=== PATIENT | female | born 1980 | race Caucasian/White ===

== ENCOUNTER 2018-05-27 13:32 | Inpatient (IN) ==
[2018-05-27] MEDS ORDERED: PANTOPRAZOLE 40 MG INJECTION IVP ONE (14:03)
[2018-05-27] MEDS ORDERED: ONDANSETRON 4 MG/2 ML INJECTION IVP ONE (14:03)
--- NOTE | 2018-05-27 14:06 | Emergency Department Report ---
Nausea/Vomiting/Diarrhea HPI - General Chief complaint: Abdominal Pain Stated complaint: Poss seizure Time Seen by Provider: 05/27/18 13:48 Source: patient Mode of arrival: ambulatory Limitations: no limitations - History of Present Illness HPI Narrative: Patient is a 37-year-old female brought to the emergency room by a friend today for evaluation of lower abdominal pain, nausea and diarrhea. Patient reports she has had symptoms for one week. She saw Paty MALONEY on Friday and again today. She reports having a pelvic exam that was normal. She is scheduled for an outpatient uterine sonogram on Friday. She reports that her pain continues to worsen, accompanied with vomiting, thus encouraging her to present to the ER today. Patient reports abdominal pain is suprapubic and low in nature. She started having diarrhea episodes today. She has had decreased oral intake. Reports last menstrual period was Friday 05/25. She does have a history of seizures and currently takes Keppra and Trileptal. She reports missing no doses of this. MD complaint: nausea, vomiting, diarrhea, abdominal pain Onset (ago): week(s) (1) Associated Abdominal Pain: Yes Location of pain: LLQ, RLQ, other (suprapubic) Severity scale (1-10): 5 Quality: cramping Consistency: intermittent Relieving factors: none Exacerbating factors: none Associated symptoms: loss of appetite - Related Data Home Medications Medication Instructions Recorded Confirmed Dicyclomine [Bentyl] 20 mg PO DAILY 05/27/18 05/27/18 Escitalopram [Lexapro] 20 mg PO DAILY 05/27/18 05/27/18 Ibuprofen 800 mg PO Q8H PRN 05/27/18 05/27/18 Levocetirizine [Xyzal] 5 mg PO HS 05/27/18 05/27/18 Levothyroxine Sodium 75 mcg PO DAILY 05/27/18 05/27/18 OXcarbazepine [Trileptal] 600 mg PO BID 05/27/18 05/27/18 Ranitidine [Zantac] 300 mg PO BID 05/27/18 05/27/18 Solifenacin Succinate [Vesicare] 5 mg PO DAILY 05/27/18 05/27/18 levETIRAcetam [Keppra] 1,000 mg PO BID 05/27/18 05/27/18 Allergies Allergy/AdvReac Type Severity Reaction Status Date / Time cefaclor Allergy Unknown Verified 05/27/18 13:54 pseudoephedrine Allergy Unknown Verified 05/27/18 13:54 sulfamethoxazole Allergy Verified 05/27/18 13:54 [From Bactrim] trimethoprim [From Bactrim] Allergy Verified 05/27/18 13:54 Review of Systems All systems: reviewed and negative except as stated Gastrointestinal: Reports: abdominal pain, nausea, vomiting, diarrhea [facility] Medical History (Last Updated 09/18/17 @ 10:26 by Ivett Landry, [facility]) Acid reflux (Chronic Medical) Anxiety (Chronic Medical) Hypothyroid (Chronic Medical) Seizures (Chronic Medical) Surgical History: Tonsillectomy. Cholecystectomy. Cyst on Ovary removed x2. [place] Teeth removed Family History: Family History (Last Reviewed 02/24/18 @ 13:32 by Marly Beckwith, [facility]) Mother Thyroid disease Father High blood pressure Hyperlipidemia Heart disease Diabetes Alcohol abuse Maternal Grandmother Stroke Cancer of breast Paternal Grandmother COPD (chronic obstructive pulmonary disease) - Social History Smoking status: Never smoker Substance use type: does not use Alcohol intake frequency: does not drink Current occupational status: employed Social history: PCP- Paty Erwin Neurologist- Dr Blackwood Physical Exam - General General appearance: alert, in no apparent distress - Normal Exams: Head:: Normocephalic without trauma Eyes:: Pupils are PERRLA w/ EOMI Neck:: Full range of motion, without adenopathy Chest/Respirations:: Clear all andrews, with good airflow Cardiovascular:: Regular rate and rhythm, without murmur or gallop, Pulses 2+ all extremities Integumentary:: No rashes Neurological:: Patient is alert, and oriented, cranial nerves, motor/sensory/ cerebellar Psychiatric:: Patient exhibits, appropriate attention, emotion and affect - Abdominal Exam Abdominal exam: Present: soft, diminished bowel sounds Abdominal tenderness: Present: suprapubic, mild Course Vital Signs Temperature 98.9 F 05/27/18 13:35 Pulse Rate 80 05/27/18 13:35 Respiratory Rate 24 05/27/18 13:35 Blood Pressure 144/76 H 05/27/18 13:35 Pulse Oximetry 98 05/27/18 13:35 Temperature 98.9 F 05/27/18 13:35 Pulse Rate 80 05/27/18 13:35 Respiratory Rate 24 05/27/18 13:35 Blood Pressure 144/76 H 05/27/18 13:35 Pulse Oximetry 98 05/27/18 13:35 Nausea/Vomiting/Diarrhea - [facility] Narrative Medical decision making narrative: 1550- Lab results completed. Noted hyponatremia- NA 121. Nausea and abdominal pain improved following IV zofran, reglan and MS. Spoke with oncall hospitalist- Dr Kay. Discussed pt history, HPI and findings. He accepts patient for inpatient admission. At this time will forego abdominal imaging as abdomen is soft with mild lower cramping. WBC count remains normal. No evidence of sepsis process. Reviewed all labs and plan of care with patient. - Differential Diagnosis Likely: traveler's diarrhea, food poisoning, gastroenteritis, drug-induced nausea and vomiting, dehydration - Medical Records Attestation: I reviewed the patient's medical records. - Lab Data Attestation: I reviewed the patient's lab results. Result diagrams: 05/27/18 14:31 05/27/18 14:31 Lab Results 05/27/18 05/27/18 05/27/18 Range/Units 14:31 14:31 14:52 WBC 7.1 (4.5-11.0) T/MM3 RBC 4.31 (4.00-5.20) M/MM3 Hgb 13.3 (12-16) GM/DL Hct 35.3 L (36-46) % MCV 81.9 (80-100) UM3 MCH 30.9 (26-34) UUG MCHC 37.7 H (31-37) GM/DL RDW Std Deviation 32.8 L (36.9-50.2) FL Plt Count 335 (130-400) T/MM3 MPV 9.0 L (9.4-12.4) UM3 Immature Gran % (Auto) Not performed Neut % (Auto) Not performed Lymph % (Auto) Not performed [place] % (Auto) Not performed Eos % (Auto) Not performed Baso % (Auto) Not performed Neut # (Auto) Not performed Lymph # (Auto) Not performed [place] # (Auto) Not performed Eos # (Auto) Not performed Baso # (Auto) Not performed Abs Immat Gran (auto) Not performed Neutrophils % (Manual) 73.0 H (33-66) % Lymphocytes % (Manual) 21.0 L (23-45) % Monocytes % (Manual) 6.0 (0-9.0) % Neutrophils # (Manual) 5.2 (1.8-7.7) T/MM3 Lymphocytes # (Manual) 1.5 (1-4.8) T/MM3 Monocytes # (Manual) 0.4 (0-0.8) T/MM3 RBC Morph Comment Normal Turbidity < 20 (0-20) Sodium 121 L* (136-146) MEQ/L Potassium 3.8 (3.6-5) MEQ/L Chloride 88 L (98-107) MEQ/L Carbon Dioxide 19 L (22-30) MEQ/L Anion Gap 14 (5-15) meq/L BUN 5.0 L (7-17) MG/DL Creatinine 0.6 L (0.7-1.2) mg/dL Estimated Creat Clear Not performed GFR Calculation 112 (>60) mL/min BUN/Creatinine Ratio 8 (6-26) RATIO Glucose 102 (65-110) MG/DL Calculated Osmolality 231 L (261-280) MOSM/KG Calcium 9.0 (8.4-10.2) MG/DL Total Bilirubin 0.60 (0.20-1.30) MG/DL Icterus Index < 2 (0-7) AST 63 H (14-36) U/L ALT 54 H (1-35) U/L Alkaline Phosphatase 298 H (38-126) U/L Total Protein 8.0 (6.3-8.2) g/dL Albumin 5.0 (3.5-5.0) g/dL Globulin 3.0 (2.4-3.6) G/DL Albumin/Globulin Ratio 1.7 (1.1-2.2) RATIO Specimen Hemolysis < 15 (0-25) Ur Collection Type Urine, void-cc/notcc Urine Color Yellow (YELLOW) Urine Clarity Sl cloudy Urine pH 7.0 (5.0-8.0) Ur Specific [place] 1.015 (1.015-1.025) Urine Protein Trace A (NEGATIVE) Urine Glucose (UA) Negative (NEGATIVE) Urine Ketones 3+ A (NEGATIVE) Urine Occult Blood Negative (NEGATIVE) Urine Nitrate Negative (NEGATIVE) Urine Bilirubin Negative (NEGATIVE) Urine Urobilinogen 2.0 (NORMAL) EU/DL Ur Leukocyte Esterase Negative (NEGATIVE) Urinalysis Comment Microscopic not ind. Urine Test (Negative) 05/27/18 Range/Units 14:52 WBC (4.5-11.0) T/MM3 RBC (4.00-5.20) M/MM3 Hgb (12-16) GM/DL Hct (36-46) % MCV (80-100) UM3 MCH (26-34) UUG MCHC (31-37) GM/DL RDW Std Deviation (36.9-50.2) FL Plt Count (130-400) T/MM3 MPV (9.4-12.4) UM3 Immature Gran % (Auto) Neut % (Auto) Lymph % (Auto) [place] % (Auto) Eos % (Auto) Baso % (Auto) Neut # (Auto) Lymph # (Auto) [place] # (Auto) Eos # (Auto) Baso # (Auto) Abs Immat Gran (auto) Neutrophils % (Manual) (33-66) % Lymphocytes % (Manual) (23-45) % Monocytes % (Manual) (0-9.0) % Neutrophils # (Manual) (1.8-7.7) T/MM3 Lymphocytes # (Manual) (1-4.8) T/MM3 Monocytes # (Manual) (0-0.8) T/MM3 RBC Morph Comment Turbidity (0-20) Sodium (136-146) MEQ/L Potassium (3.6-5) MEQ/L Chloride (98-107) MEQ/L Carbon Dioxide (22-30) MEQ/L Anion Gap (5-15) meq/L BUN (7-17) MG/DL Creatinine (0.7-1.2) mg/dL Estimated Creat Clear GFR Calculation (>60) mL/min BUN/Creatinine Ratio (6-26) RATIO Glucose (65-110) MG/DL Calculated Osmolality (261-280) MOSM/KG Calcium (8.4-10.2) MG/DL Total Bilirubin (0.20-1.30) MG/DL Icterus Index (0-7) AST (14-36) U/L ALT (1-35) U/L Alkaline Phosphatase (38-126) U/L Total Protein (6.3-8.2) g/dL Albumin (3.5-5.0) g/dL Globulin (2.4-3.6) G/DL Albumin/Globulin Ratio (1.1-2.2) RATIO Specimen Hemolysis (0-25) Ur Collection Type Urine Color (YELLOW) Urine Clarity Urine pH (5.0-8.0) Ur Specific [place] (1.015-1.025) Urine Protein (NEGATIVE) Urine Glucose (UA) (NEGATIVE) Urine Ketones (NEGATIVE) Urine Occult Blood (NEGATIVE) Urine Nitrate (NEGATIVE) Urine Bilirubin (NEGATIVE) Urine Urobilinogen (NORMAL) EU/DL Ur Leukocyte Esterase (NEGATIVE) Urinalysis Comment Urine Test Negative (Negative) Disposition Clinical Impression: Hyponatremia Vomiting Qualifiers: Vomiting type: unspecified Vomiting Intractability: unspecified Nausea presence : with nausea Qualified Code(s): R11.2 - Nausea with vomiting, unspecified Disposition: 02 To [facility] Acute Care Condition: Stable Prescriptions: No Action levETIRAcetam [Keppra] 1,000 mg PO BID Dicyclomine [Bentyl] 20 mg PO DAILY OXcarbazepine [Trileptal] 600 mg PO BID Escitalopram [Lexapro] 20 mg PO DAILY Solifenacin Succinate [Vesicare] 5 mg PO DAILY Ranitidine [Zantac] 300 mg PO BID Levothyroxine Sodium 75 mcg PO DAILY Levocetirizine [Xyzal] 5 mg PO HS Ibuprofen 800 mg PO Q8H PRN PRN Reason: Pain Referrals: Davey Pineda MD [Physician] - Paty Erwin APRN, PHD [Primary Care Provider] - Time of Disposition: 15:51 - Seen By: midlevel
[2018-05-27] MEDS ORDERED: SALINE FLUSH 10ml SYRINGE IV ONE (14:07)
[2018-05-27] MEDS: NS 1,000 ML IV SCH ×3 (14:40→19:30)
[2018-05-27] MEDS ORDERED: MORPHINE SULFATE 2mg INJECTION IVP ONE (14:51)
[2018-05-27] MEDS ORDERED: METOCLOPRAMIDE 10mg/2ml INJECTION IVP ONE (15:21)
[2018-05-27] MEDS ORDERED: NS 1,000 ML IV SCH (15:49)
[2018-05-27] MEDS ORDERED: PROCHLORPERAZINE 10 MG/2 ML INJECTION IVP PRN (16:18)
[2018-05-27] MEDS ORDERED: ONDANSETRON 4 MG/2 ML INJECTION IVP PRN (16:18)
[2018-05-27 16:24] VITALS: BMI 26.1
--- NOTE | 2018-05-27 16:32 | History & Physical Report ---
History of Present Illness Date: 05/27/18 Chief complaint: abd pain HPI: Patient is a 37 year old female who usually follows with Paty Erwin APRN for her healthcare. She presented to the emergency room today with complaints of lower abdominal pain, nausea, vomiting, and diarrhea. She reports that her period started on 05/20 and that was about the time she noted the cramping pain in the lower abdomen. The pain has progressively worsened, and is mostly constant. At its worse it has been 10/10, right now it is 2/10,but she received morphine in the emergency room a couple hours ago and this is wearing off. She states that she has had nausea and vomiting often on since around May 20, she started having diarrhea several days ago, averaging 3 stools per day which she describes as loose and not formed and without blood. Her abdominal pain is not worse prior to bowel movements or in regard to eating. He states her periods are typically regular every month. Her current method of contraception is abstinence. She finished spotting with her period yesterday. She states the last 3 months her periods have been more painful and heavier lasting 6-7 days versus previously lasting approximate 4 days. She has not had any abnormal vaginal discharge. She had a pelvic exam this morning by Paty Erwin APRN, which pt relays was nl. She states her cramping was worse after the exam and she 's had pain that radiates through to the lower back. Her pain is mostly in the pelvis. She states she takes Vesicare as needed for overactive bladder symptoms. She states that she usually takes it daily during the week of her period, thus, she has been taking it routinely. She's not had any feeling that she has had urinary retention. No dysuria, hematuria or urinary frequency. She recently traveled home from [place]. She states she lives in [place] during the summer. She's not eaten foods that have seemed undercooked or rotten. She's had no changes to her diet. She does report a history of IBS in the past consisting of both diarrhea and constipation but states that when she changed her diet though symptoms have improved. She has no history of Crohn's or ulcerative colitis, etc. She hasn't registered a fever that she has felt hot and cold off and on. She does have hypothyroidism and thinks her last TSH was probably approximately a year ago. She was on a Z-Mendoza at the beginning of April for strep. She reports following that she had a sinus infection and cough and was given at 10 day course of Augmentin. She also has a history of an exploratory laparoscopy many years ago for what she thinks is a possible ovarian cyst, but she reports there were no abnormal findings. She denies a history of endometriosis. She's never been . Patient also mentions that she is seeing Dr. Perera this coming Friday to follow-up on her seizure disorder as she feels like she's having more "auras." She reports that Friday when she was driving home, she didn't know where she was. She reports this does not usually happen to her. She also complains of a headache that she's had for the past few months and this is not normal for her. She reports she had an EEG yesterday. Review of Systems All systems PM: 10-point ROS was reviewed, no additional remarkable complaints except (headache, abd pain, diarrhea, n/v) Past Medical History Medical History: Medical History (Last Updated 09/18/17 @ 10:26 by Ivett Landry [facility]) Acid reflux Anxiety Hypothyroid Seizures Surgical History: Tonsillectomy. Cholecystectomy. Cyst on Ovary removed. [place] Teeth removed Family History: Family History Mother Thyroid disease Father High blood pressure Hyperlipidemia Heart disease Diabetes Alcohol abuse Maternal Grandmother Stroke Cancer of breast Paternal Grandmother COPD (chronic obstructive pulmonary disease) Family History: As Above - Social History Smoking status: Never smoker Substance use type: does not use Alcohol intake frequency: does not drink Household members: none Current occupational status: employed ([employer] Current residence: Apartment/Private Home Social history: PCP- Paty Erwin Neurologist- Dr Perera Medications Home Medications Medication Instructions Recorded Confirmed Type Dicyclomine [Bentyl] 20 mg PO DAILY 05/27/18 05/27/18 History Escitalopram [Lexapro] 20 mg PO DAILY 05/27/18 05/27/18 History Ibuprofen 800 mg PO Q8H PRN 05/27/18 05/27/18 History Levocetirizine [Xyzal] 5 mg PO HS 05/27/18 05/27/18 History Levothyroxine Sodium 75 mcg PO DAILY 05/27/18 05/27/18 History OXcarbazepine [Trileptal] 600 mg PO BID 05/27/18 05/27/18 History Ranitidine [Zantac] 300 mg PO BID 05/27/18 05/27/18 History Solifenacin Succinate [Vesicare] 5 mg PO DAILY 05/27/18 05/27/18 History levETIRAcetam [Keppra] 1,000 mg PO BID 05/27/18 05/27/18 History Allergies Allergy/AdvReac Type Severity Reaction Status Date / Time cefaclor Allergy Unknown Verified 05/27/18 13:54 pseudoephedrine Allergy Unknown Verified 05/27/18 13:54 sulfamethoxazole Allergy Verified 05/27/18 13:54 [From Bactrim] trimethoprim [From Bactrim] Allergy Verified 05/27/18 13:54 Exam Vital Signs: Temperature 97.4 F 05/27/18 16:17 Pulse Rate 78 05/27/18 16:17 Respiratory Rate 16 05/27/18 16:17 Blood Pressure 121/79 05/27/18 16:17 Pulse Oximetry 96 05/27/18 16:17 Height/Weight/BMI: Height 1.68 m Weight 73.5 kg Body Mass Index 26.1 - Constitutional Present: no acute distress, well nourished, well developed - Routine HEENT Exam Head: Present: normocephalic, atraumatic Eye: Present: EOMI, PERRL ENT: Present: mucous membranes moist, oropharynx clear - Routine Neck Exam Present: supple. Absent: lymphadenopathy, thyromegaly - Routine Respiratory Exam Present: CTA bilaterally. Absent: wheezes - Routine Cardiovascular Exam Present: RRR, no murmur - Routine Abdominal Exam Present: soft, tenderness (lower abdomen). Absent: normoactive bowel sounds ( hypoactive BS's), distended, rebound, guarding, firm, rigid, organomegaly, mass - Routine Extremities Exam Present: no edema, normal capillary refill - Routine Skin Exam Present: dry, warm - Routine Neurological Exam Present: alert, oriented X3, CN II-XII intact - Routine Psychiatric Exam Present: normal affect, cooperative Results - Labs CBC & Chem 7: 05/27/18 14:31 05/27/18 18:49 Labs: Laboratory Tests 05/27/18 14:31 AST 63 H ALT 54 H Alkaline Phosphatase 298 H Laboratory Tests 05/27/18 05/27/18 14:52 14:52 Ur Collection Type Urine, void-cc/notcc Urine Color Yellow Urine Clarity Sl cloudy Urine pH 7.0 Ur Specific [place] 1.015 Urine Protein Trace A Urine Glucose (UA) Negative Urine Ketones 3+ A Urine Occult Blood Negative Urine Nitrate Negative Urine Bilirubin Negative Urine Urobilinogen 2.0 Ur Leukocyte Esterase Negative Urine Test Negative Assessment and Plan Assessment and Plan: Assessment Hyponatremia - 121 on admission Acute pelvic pain assoc with diarrhea, n/v Transaminitis - POA GERD Hypothyroidism Complex partial seizure d/o Depression/anxiety Allergies Overactive bladder/bladder spasms - uses PRN Vesicare Plan Admit, observation, for tx of hyponatremia and abd pain, n/v/d. Patient was given 1 L normal saline in the emergency room. Continue IVF's for hydration and hyponatremia. Repeat sodium level at 1800. Reglan 10 IV, morphine 2 mg IV, pantoprazole 40 mg IV and Zofran 4 mg IV given in ER with improvement of symptoms. Will continue these meds as needed for pain and nausea. Repeat labs in a.m. to follow electrolytes and liver function. Check TSH and Mg. Clear liquid diet for now given her pain and diarrhea. Telemetry to monitor for arrhythmias. Consider GI panel (including c diff) if pt develops fever or leukocytosis or if diarrhea persists. Keep OP appt with Dr. Perera to f-u on EEG and headaches. Pantoprazole IV for GERD and GI prophylaxis SCD' for DVT ppx Code status - full code. Care to return to [facility] on dismissal. DVT Prophylaxis: SCD's GI Prophylaxis: Protonix Resuscitation Status: Full Code - Physician Narrative Physician: Sudhir Kay MD Narrative: Date: 05/27/18 Time: 1923 Have independently interviewed and examined pt. Chart reviewed. Case discussed with ED provider and my RELIABILITY MANAGER. Care plan developed with my supervision; agree with above. Presents to ED secondary to low ab pain increasing for the past 8 days. Full and spatic pain. Notes increased difficulty getting urine to flow. Appetite decreased-not hungry and nothing tasting well. Nausea. Reports bronchitis in April-slowly improving, but felt more winded with activities the last week. Cough and congestion decreased. In ED, found to have low sodium at 121. Place in admission status for further evaluation and treatment. Lungs: clear bilaterally CV: regular AB: soft BS decreased EXT: trace edema MSE: awake alert Plan: Inpatient admission. IVF of NS to help sodium-monitor closely. Clear liquids. Control nausea. Suspect ab symptoms to improve with normalization of sodium; if pain persists will initiate further imaging. Hospital Course Summary Disclaimer: The visit summary below is not to be considered part of the above Progress Note. Hospital Course: 05/27/18 Admit, observation, for tx of hyponatremia and abd pain, n/v/d. Patient was given 1 L normal saline in the emergency room. Continue IVF's for hydration and hyponatremia. Repeat sodium level at 1800. Reglan 10 IV, MS 2 mg IV, pantoprazole 40 mg IV and Zofran 4 mg IV given in ER with improvement of symptoms. Will continue these meds as needed for pain and nausea. Repeat labs in a.m. to follow electrolytes and liver function. Check TSH and Mg. Clear liquid diet for now given her pain and diarrhea. Telemetry to monitor for arrhythmias. Keep OP appt with Dr. Perera to f-u on EEG and headaches. Pantoprazole IV for GERD and GI prophylaxis SCD' for DVT ppx Code status - full code. Care to return to [facility] on dismissal.
[2018-05-27] MEDS ORDERED: ACETAMINOPHEN 325 MG TABLET PO PRN (16:45)
[2018-05-27] MEDS ORDERED: BISACODYL 10 MG SUPPOSITORY RECTALLY PRN (16:45)
[2018-05-27] MEDS: MORPHINE SULFATE 2mg INJECTION IVP PRN ×2 (17:57→22:20)
[2018-05-27] MEDS: LEVETIRACETAM INJ 1,000 MG in NS 100 ML IV SCH (21:34)
[2018-05-27] MEDS: OXCARBAZEPINE 300 MG TABLET PO SCH (21:34)
[2018-05-27] MEDS: SALINE FLUSH 10ml SYRINGE IVF PRN ×2 (21:35→22:21)
[2018-05-28] MEDS: MORPHINE SULFATE 2mg INJECTION IVP PRN (04:52)
[2018-05-28] MEDS: SALINE FLUSH 10ml SYRINGE IVF PRN (04:54)
[2018-05-28] MEDS: NS 1,000 ML IV SCH ×2 (04:55→19:30)
[2018-05-28] MEDS: LEVOTHYROXINE 75 MCG TABLET PO SCH (05:48)
[2018-05-28] MEDS: OXCARBAZEPINE 300 MG TABLET PO SCH ×2 (09:35→21:27)
[2018-05-28] MEDS: ESCITALOPRAM 20 MG TABLET PO SCH (09:36)
[2018-05-28] MEDS: DICYCLOMINE 20mg TABLET PO SCH (09:36)
[2018-05-28] MEDS: PANTOPRAZOLE 40 MG INJECTION IVP SCH (09:36)
[2018-05-28] MEDS: LEVETIRACETAM INJ 1,000 MG in NS 100 ML IV SCH ×2 (09:37→21:27)
[2018-05-28] MEDS: TRAMADOL 50 MG TABLET PO PRN ×2 (11:11→12:21)
--- NOTE | 2018-05-28 11:55 | Progress Note ---
- Date 05/28/18 Subjective: Clau is seen today in follow up. She is resting in bed and reports that she is feeling better. Continues to have bilateral lower abdominal "pain" cramping. No nausea/vomiting or diarrhea since admission. She is tolerating liquid diet without difficulty. Afebrile, vital sings normal. Objective Vital signs: Temperature 97.5 F 05/28/18 07:51 Pulse Rate 60 05/28/18 07:51 Respiratory Rate 14 05/28/18 07:51 Blood Pressure 106/65 05/28/18 07:51 Pulse Oximetry 98 05/28/18 07:51 Height/Weight/BMI: Height 1.68 m Weight 70.4 kg Body Mass Index 26.1 - Constitutional Present: no acute distress, well nourished, well developed - Routine HEENT Exam Eye: Present: EOMI ENT: Present: mucous membranes moist, dentition normal - Routine Respiratory Exam Present: CTA bilaterally. Absent: wheezes - Routine Cardiovascular Exam Present: RRR, S1, S2. Absent: murmur - Routine Abdominal Exam Present: soft, normoactive bowel sounds, tenderness (mild lower abd pain), non distended - Routine Extremities Exam Present: full ROM, pulses intact - Routine Back/Spine/Pelvis Exam Back/Spine: Present: full ROM - Routine Skin Exam Present: intact, dry, warm - Routine Neurological Exam Present: alert, oriented X3, CN II-XII intact, moving all extremities - Routine Lymphatic Exam Lymphatic: Absent: adenopathy - Routine Psychiatric Exam Present: normal affect, normal thought process, cooperative Results - Labs CBC & Chem 7: 05/28/18 04:12 05/28/18 04:12 Assessment and Plan Assessment and Plan: Assessment Hyponatremia - 121 on admission Acute pelvic pain assoc with diarrhea, n/v Transaminitis - POA GERD Hypothyroidism Complex partial seizure d/o Depression/anxiety Allergies Overactive bladder/bladder spasms - uses PRN Vesicare Plan Hyponatremia continues to improve. This morning 134 Continue on IV fluid Tolerating PO full liquids. May consider advancing diet later today Work on lower abdominal pain- Ultram PRN Persistent Transaminitis- Continue to follow TSH and Mag normal Re-check CBC and CMP tomorrow morning DVT Prophylaxis: SCD's GI Prophylaxis: Protonix Resuscitation Status: Full Code - Time spent with patient Time with patient PN: 25 minutes - Physician Narrative Physician: Sudhir Kay MD Narrative: Date: 05/28/18 Time: 1328 Have independently interviewed and examined pt. Chart reviewed. Case discussed with my COMPLIANCE ENGINEER. Care plan developed with my supervision; agree with above. Doing okay. Still has pain to right lower quadrant, no radiation. No f/c. More hungry, but desire to eat minimal. Passing flatus, no stool. Still feels some struggle to urinate. No f/c. Breathing stable. Lungs: clear bilaterally CV: regular AB: soft ND, mild tenderness to palpation to RLQ, no guarding, BS decrease but present MSE: awake alert Plan: Diet advanced. Tramadol/heating pad for pain. Will recheck BMP this am, sodium corrected-no neurological changes. Continue to monitor WBC. Encourage activities. Hospital Course Summary Disclaimer: The visit summary below is not to be considered part of the above Progress Note. Hospital Course: 05/27/18 Admit, observation, for tx of hyponatremia and abd pain, n/v/d. Patient was given 1 L normal saline in the emergency room. Continue IVF's for hydration and hyponatremia. Repeat sodium level at 1800. Reglan 10 IV, MS 2 mg IV, pantoprazole 40 mg IV and Zofran 4 mg IV given in ER with improvement of symptoms. Will continue these meds as needed for pain and nausea. Repeat labs in a.m. to follow electrolytes and liver function. Check TSH and Mg. Clear liquid diet for now given her pain and diarrhea. Telemetry to monitor for arrhythmias. Keep OP appt with Dr. Perera to f-u on EEG and headaches. Pantoprazole IV for GERD and GI prophylaxis SCD' for DVT ppx Code status - full code. Care to return to [facility] on dismissal. 05/28/18 Hyponatremia continues to improve. This morning 134. Will recheck this afternoon. Continue on IV fluid. Tolerating PO full liquids. May consider advancing diet later today Work on lower abdominal pain- Ultram/Heating pad PRN Persistent Transaminitis- Continue to follow. TSH and Mag normal Re-check CBC and CMP tomorrow morning.
[2018-05-29 00:50] VITALS: RESP 18
[2018-05-29] MEDS: LEVOTHYROXINE 75 MCG TABLET PO SCH (06:28)
[2018-05-29 07:46] VITALS: BP 114/72; TEMP 97.3; O2SAT 98
[2018-05-29] MEDS: NS 1,000 ML IV SCH (09:06)
[2018-05-29] MEDS: OXCARBAZEPINE 300 MG TABLET PO SCH (09:06)
[2018-05-29] MEDS: LEVETIRACETAM INJ 1,000 MG in NS 100 ML IV SCH (09:07)
[2018-05-29] MEDS: PANTOPRAZOLE 40 MG INJECTION IVP SCH (09:07)
[2018-05-29] MEDS: DICYCLOMINE 20mg TABLET PO SCH (09:07)
[2018-05-29] MEDS: ESCITALOPRAM 20 MG TABLET PO SCH (09:07)
[2018-05-29 09:40] VITALS: PULSE 68
--- NOTE | 2018-05-29 10:21 | Progress Note ---
- Date 05/29/18 Subjective: Clau is seen this morning, she is feeling good however continues to have lower suprapubic pain that is mild. No nausea or vomiting, no diarrhea and is tolerating PO intake. She does have known hx of dysmenorrhea. Remains afebrile with normal vital signs. Objective Vital signs: Temperature 97.3 F 05/29/18 07:45 Pulse Rate 68 05/29/18 08:00 Respiratory Rate 18 05/29/18 07:45 Blood Pressure 114/72 05/29/18 07:45 Pulse Oximetry 98 05/29/18 07:45 Height/Weight/BMI: Height 1.68 m Weight 69.4 kg Body Mass Index 26.1 - Constitutional Present: no acute distress, well nourished, well developed - Routine HEENT Exam Eye: Present: EOMI ENT: Present: mucous membranes moist, dentition normal - Routine Respiratory Exam Present: CTA bilaterally. Absent: wheezes - Routine Cardiovascular Exam Present: RRR, S1, S2. Absent: murmur - Routine Abdominal Exam Present: soft, normoactive bowel sounds, non distended. Absent: tenderness - Routine Extremities Exam Present: full ROM, normal capillary refill - Routine Back/Spine/Pelvis Exam Back/Spine: Present: full ROM - Routine Skin Exam Present: intact, dry, warm - Routine Neurological Exam Present: alert, oriented X3, CN II-XII intact, moving all extremities - Routine Lymphatic Exam Lymphatic: Absent: adenopathy - Routine Psychiatric Exam Present: normal affect, normal thought process, cooperative Results - Labs CBC & Chem 7: 05/29/18 04:28 05/29/18 04:28 Assessment and Plan Assessment and Plan: Assessment Hyponatremia - 121 on admission Acute pelvic pain assoc with diarrhea, n/v Transaminitis - POA GERD Hypothyroidism Complex partial seizure d/o Depression/anxiety Allergies Overactive bladder/bladder spasms - uses PRN Vesicare Plan Hyponatremia continues to improve- normalized today at 137. Will obtain pelvic ultrasound given suprapubic abd pain and dysmenorrhea Discontinue IV fluids and IV pain medications Persistent Transaminitis- Continue to follow Detailed discussion regarding causes of Hyponatremia Trileptal (her seizure medications) can cause hyponatremia She also drinks a lot of PO water. Discussed adding electrolyte drinks to daily oral intake DVT Prophylaxis: SCD's GI Prophylaxis: Protonix Resuscitation Status: Full Code - Time spent with patient Time with patient PN: 25 minutes - Physician Narrative Physician: Sudhir Kay MD Narrative: Date: 05/29/18 Time: 1350 Have independently interviewed & examined pt. Chart reviewed. Case discussed with CM and my BRAILLE CODER. Care plan developed with by supervision; agree with above. Doing better today. Not having ab pain or discomfort. Tolerated US well. Does feel harder to get urine out. Breathing well. Ambulating well. No f/c. Lungs: clear bilaterally, no crackles or wheeze CV: regular AB: soft nt/nd MSE: awake alert appropriate Plan: US normal. Pain resolved. Sodium normal. Will have nursing check bladder scan secondary to fullness patient is experiencing. Suspect discharge home today. Hospital Course Summary Disclaimer: The visit summary below is not to be considered part of the above Progress Note. Hospital Course: 05/27/18 Admit, observation, for tx of hyponatremia and abd pain, n/v/d. Patient was given 1 L normal saline in the emergency room. Continue IVF's for hydration and hyponatremia. Repeat sodium level at 1800. Reglan 10 IV, MS 2 mg IV, pantoprazole 40 mg IV and Zofran 4 mg IV given in ER with improvement of symptoms. Will continue these meds as needed for pain and nausea. Repeat labs in a.m. to follow electrolytes and liver function. Check TSH and Mg. Clear liquid diet for now given her pain and diarrhea. Telemetry to monitor for arrhythmias. Keep OP appt with Dr. Perera to f-u on EEG and headaches. Pantoprazole IV for GERD and GI prophylaxis SCD' for DVT ppx Code status - full code. Care to return to [facility] on dismissal. 05/28/18 Hyponatremia continues to improve. This morning 134. Will recheck this afternoon. Continue on IV fluid. Tolerating PO full liquids. May consider advancing diet later today Work on lower abdominal pain- Ultram/Heating pad PRN Persistent Transaminitis- Continue to follow. TSH and Mag normal Re-check CBC and CMP tomorrow morning. 05/29/18 Hyponatremia continues to improve- normalized today at 137. Will obtain pelvic ultrasound given suprapubic abd pain and dysmenorrhea Discontinue IV fluids and IV pain medications Persistent Transaminitis- Continue to follow Detailed discussion regarding causes of Hyponatremia Trileptal (her seizure medications) can cause hyponatremia She also drinks a lot of PO water. Discussed adding electrolyte drinks to daily oral intake
--- NOTE | 2018-05-29 12:24 | Ultrasound Report ---
Indication: lower abd/pelvic pain PROCEDURE: US pelvic complete: Encounter: Initial Comparison: None FINDINGS: Transabdominal pelvic imaging was performed. The uterus measures 6.4 x 3.1 x 3.9 cm. The parenchyma is homogeneous without fibroids. The endometrial stripe measures 5 mm in thickness. There is no evidence of focal endometrial mass. Both ovaries are identified and normal in appearance. The right ovary measures 2.6 x 1.7 x 1.8 cm. The left ovary measures 3 x 1.7 x 2.5 cm. There are no abnormal adnexal masses detected. Normal Doppler flow to both ovaries. No free fluid. IMPRESSION: Unremarkable pelvic sonogram. .
--- NOTE | 2018-05-29 14:23 | Discharge Summary ---
Discharge Information Date of admission: 05/27/18 15:54 Anticipated date of discharge: 05/29/18 Attending Physician: Sudhir Kay MD Primary care physician: Paty Erwin APRN, PHD Problems Reviewed?: Yes Admission diagnosis Hyponatremia - 121 on admission Associated conditions and complications Acute pelvic pain assoc with diarrhea, n/v Transaminitis - POA GERD Hypothyroidism Complex partial seizure d/o Depression/anxiety Allergies Overactive bladder/bladder spasms - uses PRN Vesicare - Procedures Procedures: None - Laboratory Labs: 05/29/18 04:28 05/29/18 04:28 Laboratory Tests 05/27/18 05/27/18 05/28/18 14:31 18:49 04:12 Sodium 121 L* 125 L 134 L D 05/28/18 05/29/18 15:26 04:28 Sodium 136 137 Laboratory Tests 05/27/18 18:49 TSH 1.03 Laboratory Tests 05/27/18 05/28/18 05/29/18 14:31 04:12 04:28 AST 63 H 54 H 62 H ALT 54 H 46 H 50 H - Microbiology None - Radiology Radiology: Non OB uterine sonogram- unremarkable - Pathology None History of Present Illness HPI: Patient is a 37 year old female who usually follows with Paty Erwin APRN for her healthcare. She presented to the emergency room today with complaints of lower abdominal pain, nausea, vomiting, and diarrhea. She reports that her period started on 05/20 and that was about the time she noted the cramping pain in the lower abdomen. The pain has progressively worsened, and is mostly constant. At its worse it has been 10/10, right now it is 2/10,but she received morphine in the emergency room a couple hours ago and this is wearing off. She states that she has had nausea and vomiting often on since around May 20, she started having diarrhea several days ago, averaging 3 stools per day which she describes as loose and not formed and without blood. Her abdominal pain is not worse prior to bowel movements or in regard to eating. He states her periods are typically regular every month. Her current method of contraception is abstinence. She finished spotting with her period yesterday. She states the last 3 months her periods have been more painful and heavier lasting 6-7 days versus previously lasting approximate 4 days. She has not had any abnormal vaginal discharge. She had a pelvic exam this morning by Paty Erwin APRN, which pt relays was nl. She states her cramping was worse after the exam and she 's had pain that radiates through to the lower back. Her pain is mostly in the pelvis. She states she takes Vesicare as needed for overactive bladder symptoms. She states that she usually takes it daily during the week of her period, thus, she has been taking it routinely. She's not had any feeling that she has had urinary retention. No dysuria, hematuria or urinary frequency. She recently traveled home from [place]. She states she lives in [place] during the summer. She's not eaten foods that have seemed undercooked or rotten. She's had no changes to her diet. She does report a history of IBS in the past consisting of both diarrhea and constipation but states that when she changed her diet though symptoms have improved. She has no history of Crohn's or ulcerative colitis, etc. She hasn't registered a fever that she has felt hot and cold off and on. She does have hypothyroidism and thinks her last TSH was probably approximately a year ago. She was on a Z-Mendoza at the beginning of April for strep. She reports following that she had a sinus infection and cough and was given at 10 day course of Augmentin. She also has a history of an exploratory laparoscopy many years ago for what she thinks is a possible ovarian cyst, but she reports there were no abnormal findings. She denies a history of endometriosis. She's never been . Patient also mentions that she is seeing Dr. Perera this coming Friday to follow-up on her seizure disorder as she feels like she's having more "auras." She reports that Friday when she was driving home, she didn't know where she was. She reports this does not usually happen to her. She also complains of a headache that she's had for the past few months and this is not normal for her. She reports she had an EEG yesterday. For complete details of the H&P refer to that document. Objective Vital signs: Temperature 97.3 F 05/29/18 07:45 Pulse Rate 68 05/29/18 08:00 Respiratory Rate 18 05/29/18 07:45 Blood Pressure 114/72 05/29/18 07:45 Pulse Oximetry 98 05/29/18 07:45 Height/Weight/BMI: Height 1.68 m Weight 69.4 kg Body Mass Index 26.1 - Constitutional Present: no acute distress, well nourished, well developed - Routine HEENT Exam Eye: Present: EOMI ENT: Present: mucous membranes moist, dentition normal - Routine Respiratory Exam Present: CTA bilaterally. Absent: wheezes - Routine Cardiovascular Exam Present: RRR, S1, S2. Absent: murmur - Routine Abdominal Exam Present: soft, normoactive bowel sounds, non distended. Absent: tenderness - Routine Extremities Exam Present: normal capillary refill - Routine Back/Spine/Pelvis Exam Back/Spine: Present: full ROM - Routine Skin Exam Present: intact, dry, warm - Routine Neurological Exam Present: alert, oriented X3, CN II-XII intact - Routine Lymphatic Exam Lymphatic: Absent: adenopathy - Routine Psychiatric Exam Present: normal affect, cooperative Hospital Course This is a general summary of the patient's hospital course. For more details refer to the complete medical record. Hospital course: 05/27/18 Admit, observation, for tx of hyponatremia and abd pain, n/v/d. Patient was given 1 L normal saline in the emergency room. Continue IVF's for hydration and hyponatremia. Repeat sodium level at 1800. Reglan 10 IV, MS 2 mg IV, pantoprazole 40 mg IV and Zofran 4 mg IV given in ER with improvement of symptoms. Will continue these meds as needed for pain and nausea. Repeat labs in a.m. to follow electrolytes and liver function. Check TSH and Mg. Clear liquid diet for now given her pain and diarrhea. Telemetry to monitor for arrhythmias. Keep OP appt with Dr. Perera to f-u on EEG and headaches. Pantoprazole IV for GERD and GI prophylaxis SCD' for DVT ppx Code status - full code. Care to return to [facility] on dismissal. 05/28/18 Hyponatremia continues to improve. This morning 134. Will recheck this afternoon. Continue on IV fluid. Tolerating PO full liquids. May consider advancing diet later today Work on lower abdominal pain- Ultram/Heating pad PRN Persistent Transaminitis- Continue to follow. TSH and Mag normal Re-check CBC and CMP tomorrow morning. 05/29/18 - Discharge Hyponatremia continues to improve- normalized today at 137. Pelvic ultrasound given suprapubic abd pain and dysmenorrhea was unremarkable. Persistent Transaminitis- Continue to follow in the outpatient setting. Detailed discussion regarding causes of Hyponatremia. Trileptal (her seizure medications) can cause hyponatremia. She also drinks a lot of PO water. Discussed adding electrolyte drinks to daily oral intake. Plan to discharge patient home on normal home medications, however, will discontinue Vesicare given symptoms of urinary retention. Patient may use [place] as needed for further pain. Would like her to follow-up with PCP, Paty MALONEY in 1 week and have a BMP at that time. See orders for details. Time spent with patient: discharge greater than 30 minutes Resuscitation Status: Full Code Discharge Plan - Discharge Disposition Discharge Date: 05/29/18 Disposition: 01 Discharged Home, Self-Care *Condition: Stable Reason For Visit (Visit label in EMR): Hyponatremia - Discharge Medications *Discharge Medications: New Hydrocodone/APAP 5/325 [[place] 5/325] 1 tab PO Q4HPRN PRN #15 tab PRN Reason: Pain Continue levETIRAcetam [Keppra] 1,000 mg PO BID Dicyclomine [Bentyl] 20 mg PO DAILY OXcarbazepine [Trileptal] 600 mg PO BID Escitalopram [Lexapro] 20 mg PO DAILY Ranitidine [Zantac] 300 mg PO BID Levothyroxine Sodium 75 mcg PO DAILY Levocetirizine [Xyzal] 5 mg PO HS Ibuprofen 800 mg PO Q8H PRN PRN Reason: Pain Discontinued Solifenacin Succinate [Vesicare] 5 mg PO DAILY - Discharge Packet/Instructions *Diet: Regular diet *Activity: As tolerated *Pain Management/Treatment: Tylenol as needed for mild pain. [place] as needed for severe pain *Wound Care: N/A Additional Instructions: Stop taking Vesicare. Continue all other home medications. Montior about of water intake you take and add electrolyte drinks such as Gatorade. Call and schedule follow up apt with Paty Erwin for 1 week. Will need a BMP at that time *Expected Signs/Symptoms: Improvement in symptoms *Notify Physician if: Fever, chills, vomiting, diarrhea, worsening abdominal pain, other concerning symptoms *During Business Hours Contact: Contact Paty Erwin *After Business Hours Contact: Sivan hector for Paty Erwin *Pending Lab/Results: No Pending Lab - Referrals/Follow Up *Referrals/Follow Up: Paty Erwin APRN, PHD [Primary Care Provider] - (Schedule follow up apt for 1 week Will need BMP lab work at that time) - Patient Handouts - Dismissal Complete Discharge Instructions are:: Complete Physician Narrative - Narrative Physician: Sudhir Kay MD Attestation Narrative: Date: 05/29/18 Time: 1420 I have independently interviewed and examined patient prior to discharge. See my progress note fore details. Discharge details and plan discussed with my MAGAZINE SUPERVISOR. Reviewed above note and concur. Medically stable for discharge.
== END 2018-05-29 15:30 | disposition home or self-care (01) | DRG 641 ==
LOC: ED 13:32 → EDHOLD 15:54 → MED 16:10
PROVIDERS: ADMIT Hospitalist; ATTEND Hospitalist